=== PATIENT | female | born 1940 | race Caucasian/White ===

== ENCOUNTER 2021-03-28 10:04 | Emergency (ER) | payer BC, SELFPAY ==
[2021-03-28 10:18] VITALS: BP 150/78; PULSE 93; RESP 16; TEMP 36.2; O2SAT 99
--- NOTE | 2021-03-28 10:28 | ED.EXTPRO ---
HPI - Extremity Problem General Chief complaint: Extremity Problem,Nontraumatic Stated complaint: Swolllen toe History of Present Illness HPI Narrative: This is a 80-year-old female comes in complaining of toe sore according to patient she noticed it on Wednesday. Patient denies any injuries states that it is bruised swollen she is a diabetic denies any pain. Related Data Home Medications Medication Instructions Recorded Confirmed amlodipine 5 mg PO DAILY 03/28/21 03/28/21 apixaban [Eliquis] 5 mg PO BID 03/28/21 03/28/21 dapagliflozin [Farxiga] 10 mg PO DAILY 03/28/21 03/28/21 dulaglutide [Trulicity] 1.5 mg SUBCUT WEEKLY 03/28/21 03/28/21 insulin glargine [Basaglar KwikPen 66 unit SUBCUT DAILY 03/28/21 03/28/21 U-100 Insulin] insulin lispro [Humalog KwikPen 30 unit SUBCUT TIDWMEAL 03/28/21 03/28/21 Insulin] metoprolol succinate 25 mg PO DAILY 03/28/21 03/28/21 ramipril 1.25 mg PO DAILY 03/28/21 03/28/21 rosuvastatin 40 mg PO DAILY 03/28/21 03/28/21 Allergies Allergy/AdvReac Type Severity Reaction Status Date / Time levofloxacin Allergy Unknown ELAVATED Verified 03/28/21 10:07 BLOOD SUGAR NAUSEA Sulfa (Sulfonamide Allergy Unknown Chills Verified 03/28/21 10:07 Antibiotics) Contrast Media Allergy Mild Hives / Uncoded 03/28/21 10:07 Red Face Review of Systems Review of Systems: Left second toe All systems reviewed & are unremarkable except as noted in HPI and below PMFSH Comments At time as signature, I have reviewed and agree with nursing past medical, social, surgical and family history. Please see nursing chart for further information. There is no relevant family history pertinent to the presenting complaint. Exam Narrative: GENERAL:Well-appearing, well-nourished, and in no acute distress. HEAD:Normocephalic, atraumatic. EYES: PERRLA and EOMI. ENT: Nares clear, no rhinorrhea or epistaxis. Mucous membranes moist. NECK: Supple. CHEST: Clear to auscultation. No respiratory distress. HEART: Regular rate and rhythm. Normal peripheral pulses. ABDOMEN: Soft, nontender, nondistended, normal active bowel sounds. EXTREMITIES: Normal range of motion. Left second toe bruise and swollen looks as if a blister is forming. SKIN: Warm, dry, no rash. NEURO: No focal deficits. Alert and oriented x3. Course Vital Signs Vital signs: Vital Signs Temperature 97.2 F L 03/28/21 10:18 Pulse Rate 93 03/28/21 10:18 Respiratory Rate 16 03/28/21 10:18 Blood Pressure 150/78 H 03/28/21 10:18 Pulse Oximetry 99 03/28/21 10:18 Temperature 97.2 F L 03/28/21 10:18 Pulse Rate 93 03/28/21 10:18 Respiratory Rate 16 03/28/21 10:18 Blood Pressure 150/78 H 03/28/21 10:18 Pulse Oximetry 99 03/28/21 10:18 Discharge Plan Discharge Clinical Impression: Cellulitis of toe, left Hypertension Qualifiers: Hypertension type: unspecified Qualified Code(s): I10 - Essential (primary) hypertension Patient Disposition: Home, Self-Care Condition: Stable Instructions: Antibiotic Form, Cellulitis (ED), Chronic Hypertension (ED) Additional Instructions: Take the prescribed antibiotic medicine you are given as directed until it is gone. ... Keep the infected area clean. When possible, raise the infected area above the level of your heart. ... Talk with your healthcare provider if you are in pain. ... Apply clean bandages as advised. Please STONE schedule a followup visit with your personal physician with in the next 1-4 weeks for further evaluation and treatment. Also, ask your personal physician to assist you regarding blood pressure. Even blood pressure exceeding 120/80 may indicate pre-hypertension. If your symptoms persist, change or worsen significantly before you can contact your personal physician then please, without delay, go to the emergency department for further evaluation. Prescriptions: New cephalexin 500 mg capsule 500 mg PO Q12H Qty: 20 RF: 0 No A
== END 2021-03-28 10:40 | disposition home or self-care (01) ==
PROVIDERS: Emergency Provider Nurse Practitioner Family
DX: L03.032 Cellulitis of left toe (principal); I10 Essential (primary) hypertension; E11.9 Type 2 diabetes mellitus without complications; Z79.01 Long term (current) use of anticoagulants; Z79.4 Long term (current) use of insulin
CPT/HCPCS: 99213; G0463

== ENCOUNTER 2023-11-12 17:45 | Observation (INO) | payer BC, MEDICARE, SELFPAY ==
[2023-11-12] VITALS (9 sets, daily range): BP systolic 112–145; BP diastolic 48–96; PULSE 54–63; RESP 14–18; TEMP 36.2–36.4; O2SAT 93–99; BMI 42.9
--- NOTE | ~2023-11-12 | XR_ITS ---
EXAMINATION: XR chest 1V portable DATE: 11/12/2023 19:51 INDICATION: Weakness. TECHNIQUE: A single frontal view of the chest was obtained. COMPARISON: Chest 2 views 10/19/2016 FINDINGS: There is mild atelectasis in the lower lung zones. No pleural effusion or pneumothorax. The heart size is normal. There is a chronic sclerotic lesion in proximal left humerus, likely an enchon droma or osteonecrosis. IMPRESSION: 1. Mild atelectasis in the lower lung zones. Reviewed, dictated and finalized at location E.
[2023-11-12 18:00] LABS: Glucose Point of Care 127 mg/dl (65-105)
--- NOTE | 2023-11-12 19:19 | ECG_ITS ---
SEE SCANNED COPY FOR CONFIRMED REPORT MTDD
--- NOTE | 2023-11-12 19:26 | PC.NURSE ---
this rn assumed care of patient. this rn took patient report from ASHTYN [place].
--- NOTE | 2023-11-12 19:28 | ED.GENADULT ---
HPI - General Adult General Chief complaint: Recheck/Abnormal Lab/Rx Stated complaint: LOW bg Time Seen by Provider: 11/12/23 19:10 History of Present Illness HPI narrative: patient 83-year-old female who presents emergency department with chief complaint of hypoglycemia. Patient was recently admitted to [facility] and was discharged a day and a half ago to a assisted living facility apparently they have not restarted the patient's Dexcom and the family reports that her insulin dose had been reduced to 15 units as the patient has not really been eating and drinking much since she was hospitalized the family reports that they believe that the facility may have given her old dose of 20 units the patient was found have a blood sugar in the 30s and was treated with glucagon and dextrose Related Data Home Medications Medication Instructions Recorded Confirmed amlodipine 5 mg tablet 5 mg PO DAILY 03/28/21 11/11/23 apixaban 5 mg tablet (Eliquis) 5 mg PO BID 03/28/21 11/11/23 ramipril 1.25 mg capsule 1.25 mg PO DAILY 03/28/21 11/11/23 rosuvastatin 40 mg tablet 40 mg PO DAILY 03/28/21 11/11/23 ergocalciferol (vitamin D2) 1,250 1,250 mcg PO WEEKLY 06/03/22 11/11/23 mcg (50,000 unit) capsule icosapent ethyl 1 gram capsule 1 g PO BID 06/03/22 11/11/23 (Vascepa) multivitamin with minerals-folic 1 tablet PO DAILY 06/03/22 11/11/23 acid 120 mcg chewable tablet (Centrum Adult 50 Plus Fresh-Fruity) carvedilol 25 mg tablet 25 mg PO Q12H 12/08/22 11/11/23 ferrous sulfate 325 mg (65 mg 325 mg PO DAILY 12/08/22 11/11/23 iron) tablet finerenone 10 mg tablet (Kerendia) 10 mg PO DAILY 06/02/23 11/11/23 Allergies Allergy/AdvReac Type Severity Reaction Status Date / Time levofloxacin Allergy Unknown ELAVATED Verified 09/30/23 10:12 BLOOD SUGAR NAUSEA Sulfa (Sulfonamide Allergy Unknown Chills Verified 09/30/23 10:12 Antibiotics) Contrast Media Allergy Mild Hives / Uncoded 09/30/23 10:12 Red Face Review of Systems Review of Systems: A 10 system review of systems was completed on the patient and is negative except for what is stated in the HPI. Nursing and ancillary documentation was reviewed. [facility] Past Medical History Medical History Basal cell carcinoma (BCC) of face Hypoxia Pulmonary embolism Type 2 diabetes mellitus Social History Social History Smoking status: Never smoker Second hand tobacco smoke exposure: No Alcohol intake: never Alcohol use details: ONCE A YEAR Substance use: never Do You Feel Safe in your Home?: Yes Lack of Transportation: No Lack of Food: Never True Current Housing: I Have Housing Concerned About Future Housing: No Difficulty Paying Gas/Electric Bills: No Difficulty Paying for Meds: No Currently Unemployed: No Education: High School Diploma/GED Difficulty w/ Childcare or Family Care: No Living arrangements: with friend(s) Occupation/Education: retired Gender identity (if verbalized by the patient): Female Spiritual care concerns: No Exam Narrative: GENERAL: Well-appearing, well-nourished, and in no acute distress. HEAD: Normocephalic, atraumatic. EYES: PERRLA and EOMI. ENT: Nares clear, no rhinorrhea or epistaxis. Mucous membranes moist. NECK: Supple. CHEST: Clear to auscultation. No respiratory distress. HEART: Regular rate and rhythm. No murmur heard. Normal peripheral pulses. ABDOMEN: Soft, nontender, nondistended, normal active bowel sounds. EXTREMITIES: Normal range of motion. No edema. SKIN: Warm, dry, no rash. NEURO: No focal deficits. Alert and oriented x3. PSYCH: Normal mood and affect. Course Vital Signs Vital signs: Vital Signs Temperature 36.2 C L 11/12/23 17:56 Pulse Rate 58 L 11/12/23 17:56 Respiratory Rate 14 11/12/23 17:56 Blood Pressure 112/59 L 11/12/23 17:
[2023-11-12 19:38] LABS: Glucose Point of Care 150 mg/dl (65-105)
[2023-11-12 19:52] LABS: Basophils Absolute Auto 0.1 K/mm3 (0.0-0.1); Basophils Percent Auto 0.5 % (0.2-1.2); Eosinophils Absolute Auto 0.2 K/mm3 (0-0.3); Eosinophils Percent Auto 1.7 % (0-4.4); Hematocrit 33.4 % (37.0-47.0); Hemoglobin 10.6 g/dL (12.0-15.0); Immature Granulocyte Absolute 0.04 K/mm3 (0.00-0.031); Immature Granulocyte Percent A 0.3 % (0-0.5); Lymphocytes Absolute Auto 1.56 K/mm3 (0.9-3.2); Lymphocytes Percent Auto 12.2 % (18.3-44.2); Mean Corpuscular HGB Conc 31.7 g/dl (32-36); Mean Corpuscular Hemoglobin 30.8 pg (26-34); Mean Corpuscular Volume 97.1 fl (80-100); Mean Platelet Volume 9.7 fl (7.4-10.4); Monocytes Absolute Auto 0.9 K/mm3 (0.1-0.6); Monocytes Percent Auto 7.3 % (2.6-8.5); Platelet Count Result 235 k/mm3 (150-375); Red Blood Count 3.44 M/mm3 (4.2-5.4); Red Cell Distribution Width 13.3 % (11.5-14.5); White Blood Count 12.8 K/mm3 (4.5-10.0)
[2023-11-12 20:07] LABS: Alanine Aminotransferase 25 U/L (6-35); Albumin Level 3.8 g/dL (3.5-5.1); Alkaline Phosphatase 70 U/L (38-126); Anion Gap 6 mmol/L (4-12); Aspartate Amino Transferase 38 U/L (14-36); Bilirubin,Total 0.7 mg/dL (0.2-1.3); Blood Urea Nitrogen 49 mg/dL (7-17); Calcium 9.4 mg/dL (8.4-10.2); Carbon Dioxide 33 mmol/L (22-30); Chloride 99 mmol/L (98-107); Estimated CRCL calculation 26 ml/min; Estimated Glomerular Filt Rate 24; Glucose 141 mg/dL (65-110); Potassium 3.7 mmol/L (3.4-5.0); Sodium 138 mmol/L (137-145)
[2023-11-12 20:08] LABS: Lactic Acid Reflex 0.8 mmol/L (0.7-2.0)
[2023-11-12 20:17] LABS: Troponin I 0.022 ng/mL (0.000-0.034)
[2023-11-12 20:32] LABS: Procalcitonin 0.2 ng/mL
[2023-11-12] MEDS: SODIUM CHLORIDE 0.9% IV 1,000 ML 75 ML IV CONT (21:42)
[2023-11-12 21:44] LABS: Add Urine Microscopic? NO; Appearance Urine Clear (Clear); Bilirubin Urine Negative (Negative); Blood Urine Negative (Negative); Color Urine Yellow (Yellow); Glucose Urine UA 2+ mg/dL (Negative); Ketones Urine Negative (Negative); Leukocyte Esterase Ur Negative LEU/UL (Negative); Nitrate Urine Negative (Negative); Protein Urine Negative (Negative); Specific Grav Ur 1.013 (1.001-1.035); pH Urine 7.5 (5.0-9.0)
--- NOTE | 2023-11-12 22:13 | ADMGEN ---
This patient, María Paul, was admitted to IMU Room 214-01. Patient/family oriented to hospital policies and general routines including ID bracelet, bed and alarms, visiting hours, pain management, procedures, bathroom and other care routines, personal items, smoking policy, room service/diet, and visiting hours. Information on how to activate the Rapid Response Team has been discussed. Patient/Family are encouraged to report perceived risks to care and to ask questions if they do not understand what they are told or what they should do.
--- NOTE | 2023-11-12 22:14 | PM.IMHP ---
H&P: HPI History of Present Illness Date/Time: 11/12/23 22:14 Chief Complaint: altered mental status Narrative: This is an 83-year-old female who resides at a a [facility] a facility, past medical history significant for insulin-dependent diabetes mellitus, hypertension, dyslipidemia,she was brought to the emergency room for evaluation due to altered mental status patient was found to have a blood sugar of 36. When visiting with the patient she stated that deliberately has been eating less than 50% of her meals to avoid uncontrolled sugars. Patient had a recent admission for uncontrolled sugars at outside facility. Patient denies any nausea, vomiting, diarrhea, fevers, night sweats, cough, sputum production. Preliminary workup has been essentially nonrevealing. EXAMINATION: XR chest 1V portable DATE: 11/12/2023 19:51 INDICATION: Weakness. TECHNIQUE: A single frontal view of the chest was obtained. COMPARISON: Chest 2 views 10/19/2016 FINDINGS: There is mild atelectasis in the lower lung zones. No pleural effusion or pneumothorax. The heart size is normal. 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 IMPRESSION: 1. Mild atelectasis in the lower lung zones. Review of Systems Review of Systems: Low blood sugar Constitutional: Constitutional: Denies chills, Denies fever(s), Denies malaise and Denies weakness Eyes: Eyes: Denies change in vision ENT: Denies dysphagia and Denies odynophagia Cardiovascular: Cardiovascular: Denies chest pain, Denies radiating jaw, neck or arm pain and Denies palpitations Respiratory: Respiratory: Denies chest congestion and Denies cough Gastrointestinal: Gastrointestinal: Denies abdominal pain, Denies dyspepsia, Denies diarrhea, Denies nausea and Denies vomiting Genitourinary: Genitourinary: Denies dysuria Musculoskeletal: Musculoskeletal: Denies arthralgias Integumentary/Breasts: Skin/Breast: Denies rash Neurologic: Denies focal weakness and Denies Sensory deficit (Neuro) Psychiatric: Psychiatric: Reports no additional psychiatric complaints and Reports as per HPI Endocrine: Endocrine: Denies polyphagia, Denies polydipsia, Denies polyuria and Reports other ( hypoglycemia) Hematologic/Lymphatic: Hematologic/Lymphatic: Reports no additional hematologic/lymphatic complaints and Reports as per HPI Allergic/Immunologic: Allergic/Immunologic: Reports no additional allergic/immunologic complaints and Reports as per HPI [facility] Past Medical History Medical History (Updated 11/13/23 @ 02:16 by Rafi Kendall MD) Basal cell carcinoma (BCC) of face Hypoxia Pulmonary embolism Type 2 diabetes mellitus Family History Family History (Updated 11/12/23 @ 23:04 by Dominique Yuen RN) Mother Hypertension Diabetes mellitus Cancer Sibling Hypertension Diabetes mellitus Social History Social History Smoking status: Never smoker Second hand tobacco smoke exposure: No Alcohol intake: never Alcohol use details: ONCE A YEAR Substance use: never Do You Feel Safe in your Home?: Yes Lack of Transportation: No Lack of Food: Never True Current Housing: I Have Housing Concerned About Future Housing: No Difficulty Paying Gas/Electric Bills: No Difficulty Paying for Meds: No Currently Unemployed: No Education: High School Diploma/GED Difficulty w/ Childcare or Family Care: No Living arrangements: with friend(s) Occupation/Education: retired Gender identity (if verbalized by the patient): Female Spiritual care concerns: No Meds Home Medications and Allergies Home Medications Medication Instructions Recorded Confirmed Type amlodipine 5 mg tablet 5 mg PO DAILY 03/28/21 11/11/23 History apixaban 5 mg tablet (Eliquis) 5 mg PO BID 03/28/21 11/11/23 History ramipril 1.25 mg capsule 1.25 mg PO DAILY 03/28/21 11/11/23 Hi
[2023-11-12 22:18] LABS: Glucose Point of Care 141 mg/dl (65-105)
[2023-11-13] VITALS (10 sets, daily range): BP systolic 125–145; BP diastolic 35–60; PULSE 62–77; RESP 16–17; TEMP 36.3–37.1; O2SAT 91–99
[2023-11-13 00:15] LABS: Glucose Point of Care 98 mg/dl (65-105)
[2023-11-13 03:24] LABS: Glucose Point of Care 135 mg/dl (65-105)
[2023-11-13 04:29] LABS: Glucose Point of Care 144 mg/dl (65-105)
[2023-11-13 04:40] LABS: Basophils Absolute Auto 0.1 K/mm3 (0.0-0.1); Basophils Percent Auto 0.7 % (0.2-1.2); Eosinophils Absolute Auto 0.3 K/mm3 (0-0.3); Eosinophils Percent Auto 3.5 % (0-4.4); Hematocrit 30.2 % (37.0-47.0); Hemoglobin 9.6 g/dL (12.0-15.0); Immature Granulocyte Absolute 0.02 K/mm3 (0.00-0.031); Immature Granulocyte Percent A 0.3 % (0-0.5); Lymphocytes Absolute Auto 1.67 K/mm3 (0.9-3.2); Lymphocytes Percent Auto 22.4 % (18.3-44.2); Mean Corpuscular HGB Conc 31.8 g/dl (32-36); Mean Corpuscular Hemoglobin 30.8 pg (26-34); Mean Corpuscular Volume 96.8 fl (80-100); Mean Platelet Volume 9.9 fl (7.4-10.4); Monocytes Absolute Auto 0.8 K/mm3 (0.1-0.6); Monocytes Percent Auto 10.3 % (2.6-8.5); Neutrophils Absolute Auto 4.7 K/mm3 (1.3-6.7); Neutrophils Percent Auto 62.8 % (45.5-73.1); Platelet Count Result 214 k/mm3 (150-375); Red Blood Count 3.12 M/mm3 (4.2-5.4); Red Cell Distribution Width 13.2 % (11.5-14.5); White Blood Count 7.5 K/mm3 (4.5-10.0)
[2023-11-13 04:52] LABS: Anion Gap 9 mmol/L (4-12); Blood Urea Nitrogen 47 mg/dL (7-17); Carbon Dioxide 31 mmol/L (22-30); Chloride 100 mmol/L (98-107); Estimated CRCL calculation 25 ml/min; Estimated Glomerular Filt Rate 24; Glucose 139 mg/dL (65-110); Potassium 3.6 mmol/L (3.4-5.0); Sodium 140 mmol/L (137-145)
[2023-11-13 06:21] LABS: Glucose Point of Care 133 mg/dl (65-105)
[2023-11-13 07:43] LABS: Glucose Point of Care 107 mg/dl (65-105)
--- NOTE | 2023-11-13 08:28 | PM.IMPN ---
Progress Note: A&P Assessment and Plan (1) Hypoglycemia: Code(s): E16.2 - Hypoglycemia, unspecified Status: Acute (2) Type 2 diabetes mellitus with hyperglycemia, with long-term current use of insulin: Code(s): E11.65 - Type 2 diabetes mellitus with hyperglycemia; Z79.4 - petroleum terminal plant operator (current) use of insulin Status: Acute (3) Generalized weakness: Code(s): R53.1 - Weakness Status: Acute (4) Pulmonary embolism: Code(s): I26.99 - Other pulmonary embolism without acute cor pulmonale Status: Acute Plan This is an 83-year-old female who presents to the ED with complaint of hypoglycemia. Patient was recently admitted to [place] and was discharged the day and half ago to assisted living facility. Patient had been on insulin at home. Patient poor historian. Blood sugar was as low as 30s at home and was treated with glucagon and dextrose in the facility. She was sent to the ER for further treatment. Laboratory evaluation showed WBC of 12.8 hemoglobin of 10.6 creatinine of 2. Procalcitonin was 0.2 troponin 0.022 chest x-ray with no acute findings. Admitted for overnight observation for hypoglycemia. According to the medical records patient has been eating poorly she was recently admitted for uncontrolled sugars at the outside facility. X-rays monitoring with acceptable blood sugar currently. Insulin on hold. Will check A1c. On dapagliflozin 10 mg daily Lantus 30 units Humalog 20 units 3 times a day with meals and mounjaro 5 mg weekly listed in her home medlist follows with Endocrinology at [facility]. A1c 8.7 10/02. Urinary retention needing straight catheterization History of PE on apixaban Hypertension Hyperlipidemia Coronary artery disease status post stents in the past Mild anemia with no signs of bleeding Renal insufficiency creatinine of 2 GFR 25. No prior levels available. But noted GFR of 31 in endocrine visit note. Likely has chronic kidney disease DVT prophylaxis with apixaban Subjective Date/time seen: 11/13/23 08:28 Interval history: Feels well. No new complaints. Blood sugar trend reviewed. States blood sugar has been up and down Review of Systems Review of Systems: All systems reviewed & are unremarkable except as noted in HPI and below Exam Narrative: GENERAL: Well-appearing, well-nourished, and in no acute distress. HEAD: Normocephalic, atraumatic. EYES: PERRLA and EOMI. ENT: Nares clear, no rhinorrhea or epistaxis.? Mucous membranes moist. NECK: Supple. CHEST: Clear to auscultation.? No respiratory distress. HEART: Regular rate and rhythm.? No murmur heard.? Normal peripheral pulses. ABDOMEN: Soft, nontender, nondistended, normal active bowel sounds. EXTREMITIES: Normal range of motion.? No edema. SKIN: Warm, dry, no rash. NEURO: No focal deficits.? Alert and oriented x3. PSYCH: Normal mood and affect. Objective Data Vital Signs Vital Signs: Vital Signs - 24 hr 11/12/23 17:56 11/12/23 19:31 11/12/23 19:31 Temperature 97.2 F L Pulse Rate 58 L 54 L Respiratory Rate 14 15 14 Blood Pressure 112/59 L 117/49 L Pulse Oximetry 95 95 95 Oxygen Delivery 11/12/23 19:47 11/12/23 20:02 11/12/23 20:32 Temperature Pulse Rate 59 L 56 L 58 L Respiratory Rate 14 15 14 Blood Pressure 142/57 H 139/48 L 145/62 H Pulse Oximetry 95 97 97 Oxygen Delivery 11/12/23 20:46 11/12/23 21:16 11/12/23 21:31 Temperature Pulse Rate 59 L 61 63 Respiratory Rate 14 14 18 Blood Pressure 141/58 H 134/51 L 139/96 H Pulse Oximetry 96 93 96 Oxygen Delivery 11/12/23 22:00 11/13/23 00:00 11/12/23 22:00 Temperature 97.5 F L 97.4 F L 97.5 F L Pulse Rate 62 77 62 Respiratory Rate 18 16 16 Blood Pressure 139/48 L 130/35 L 139/48 L Pulse Oximetry 99 99 99 Oxygen Delivery 11/13/23 00:00 11/13/23 04:00 11/13/23 04:00 Temperature 97.9 F Pulse Rate 68 Respiratory Rate 16 Blood Pressure 126/37 L Pulse Oximetry 91
[2023-11-13] MEDS: APIXABAN 5 MG TABLET PO ×2 (08:40→21:49)
[2023-11-13] MEDS: OMEGA 3 POLYUNSAT FATTY ACIDS 1 GM CAP PO ×2 (08:40→17:18)
[2023-11-13] MEDS: ROSUVASTATIN 10 MG TABLET 40 MG PO (08:40)
[2023-11-13] MEDS: amLODIPine BESYLATE 5 MG TABLET PO (08:40)
[2023-11-13] MEDS: FERROUS SULFATE 325 MG TABLET DR BY MOUTH (08:40)
[2023-11-13] MEDS: carvediloL 25 MG TABLET PO ×2 (08:40→21:49)
[2023-11-13 10:14] LABS: Glucose Point of Care 167 mg/dl (65-105)
--- NOTE | 2023-11-13 11:38 | PC.NURSE ---
This patient, María Paul, was transferred to [facility] on 11/13/23 at 1138. Personal belongings sent with patient. Report given to Cat CHAMORRO. Appropriate documentation sent with patient. Left Message with Michela (Sister) of new room number.
--- NOTE | 2023-11-13 11:40 | PC.NURSE ---
This patient, María Paul, was received from [facility] on 11/13/23 at 1140. Patient/family oriented to unit policies and routines. Report received from ASHTYN [place].
[2023-11-13 13:53] LABS: Hemoglobin A1C 6.8 % (<5.7)
[2023-11-13] MEDS: SODIUM CHLORIDE 0.9% IV 1,000 ML 75 ML IV CONT (17:19)
[2023-11-13 17:28] LABS: Glucose Point of Care 167 mg/dl (65-105)
--- NOTE | 2023-11-13 19:13 | PC.NURSE ---
On 11/13/23, the PIPE STEM REPAIRER, Cat, provided care and completed [facility] documentation on this patient. I have reviewed the PIPE STEM REPAIRER's documentation and agree with the findings.
[2023-11-13 21:18] LABS: Glucose Point of Care 220 mg/dl (65-105)
[2023-11-14] MEDS: SODIUM CHLORIDE 0.9% IV 1,000 ML 75 ML IV CONT (02:00)
[2023-11-14 04:42] LABS: Basophils Absolute Auto 0.1 K/mm3 (0.0-0.1); Eosinophils Absolute Auto 0.3 K/mm3 (0-0.3); Eosinophils Percent Auto 5.7 % (0-4.4); Hematocrit 30.2 % (37.0-47.0); Hemoglobin 9.4 g/dL (12.0-15.0); Immature Granulocyte Absolute 0.01 K/mm3 (0.00-0.031); Immature Granulocyte Percent A 0.2 % (0-0.5); Lymphocytes Absolute Auto 1.86 K/mm3 (0.9-3.2); Lymphocytes Percent Auto 31.2 % (18.3-44.2); Mean Corpuscular HGB Conc 31.1 g/dl (32-36); Mean Corpuscular Hemoglobin 30.5 pg (26-34); Mean Corpuscular Volume 98.1 fl (80-100); Mean Platelet Volume 9.9 fl (7.4-10.4); Monocytes Absolute Auto 0.8 K/mm3 (0.1-0.6); Monocytes Percent Auto 12.9 % (2.6-8.5); Neutrophils Absolute Auto 2.9 K/mm3 (1.3-6.7); Platelet Count Result 216 k/mm3 (150-375); Red Blood Count 3.08 M/mm3 (4.2-5.4); Red Cell Distribution Width 13.2 % (11.5-14.5)
[2023-11-14 04:56] LABS: Alanine Aminotransferase 22 U/L (6-35); Albumin Level 3.4 g/dL (3.5-5.1); Alkaline Phosphatase 65 U/L (38-126); Anion Gap 3 mmol/L (4-12); Aspartate Amino Transferase 31 U/L (14-36); Bilirubin,Total 0.6 mg/dL (0.2-1.3); Blood Urea Nitrogen 44 mg/dL (7-17); Calcium 8.5 mg/dL (8.4-10.2); Carbon Dioxide 32 mmol/L (22-30); Chloride 102 mmol/L (98-107); Estimated CRCL calculation 27 ml/min; Estimated Glomerular Filt Rate 27; Glucose 133 mg/dL (65-110); Potassium 3.7 mmol/L (3.4-5.0); Sodium 137 mmol/L (137-145)
[2023-11-14 06:00] VITALS: BP 109/56; PULSE 61; RESP 16; TEMP 36.3; O2SAT 97
[2023-11-14 07:23] LABS: Glucose Point of Care 150 mg/dl (65-105)
[2023-11-14 09:19] VITALS: PULSE 72
[2023-11-14] MEDS: OMEGA 3 POLYUNSAT FATTY ACIDS 1 GM CAP PO ×2 (09:19→17:03)
[2023-11-14] MEDS: ROSUVASTATIN 10 MG TABLET 40 MG PO (09:19)
[2023-11-14] MEDS: carvediloL 25 MG TABLET PO ×2 (09:19→21:48)
[2023-11-14] MEDS: APIXABAN 5 MG TABLET PO ×2 (09:20→21:47)
[2023-11-14] MEDS: FERROUS SULFATE 325 MG TABLET DR BY MOUTH (09:21)
[2023-11-14 09:38] VITALS: BP 136/43
[2023-11-14] MEDS: amLODIPine BESYLATE 5 MG TABLET PO (09:39)
[2023-11-14 11:14] LABS: Glucose Point of Care 220 mg/dl (65-105)
[2023-11-14] MEDS: INSULIN ASPART (*BKC) 100 UNITS/ML SUB-Q (11:58)
--- NOTE | 2023-11-14 13:52 | PM.IMPN ---
Progress Note: A&P Assessment and Plan (1) Hypoglycemia: Code(s): E16.2 - Hypoglycemia, unspecified Status: Acute (2) Type 2 diabetes mellitus with hyperglycemia, with long-term current use of insulin: Code(s): E11.65 - Type 2 diabetes mellitus with hyperglycemia; Z79.4 - terminal operator (current) use of insulin Status: Acute (3) Generalized weakness: Code(s): R53.1 - Weakness Status: Acute (4) Pulmonary embolism: Code(s): I26.99 - Other pulmonary embolism without acute cor pulmonale Status: Acute Plan This is an 83-year-old female who presents to the ED with complaint of hypoglycemia. Patient was recently admitted to [place] and was discharged the day and half ago to assisted living facility. Patient had been on insulin at home. Patient poor historian. Blood sugar was as low as 30s at home and was treated with glucagon and dextrose in the facility. She was sent to the ER for further treatment. Laboratory evaluation showed WBC of 12.8 hemoglobin of 10.6 creatinine of 2. Procalcitonin was 0.2 troponin 0.022 chest x-ray with no acute findings. Admitted for overnight observation for hypoglycemia. According to the medical records patient has been eating poorly she was recently admitted for uncontrolled sugars at the outside facility. X-rays monitoring with acceptable blood sugar currently. Insulin on hold. Will check A1c. On dapagliflozin 10 mg daily Lantus 30 units Humalog 20 units 3 times a day with meals and mounjaro 5 mg weekly listed in her home medlist follows with Endocrinology at [facility]. A1c 8.7 10/02. Repeat A1c here at 6.8. With recurrent hypoglycemia and her confusion about insulin dosing will try to avoid insulin at least prandial this point. Blood sugars are running bit would like to get her back got at least the basal insulin at this point. Urinary retention needing straight catheterization History of PE on apixaban Hypertension Hyperlipidemia Coronary artery disease status post stents in the past Mild anemia with no signs of bleeding Renal insufficiency creatinine of 2 GFR 25. No prior levels available. But noted GFR of 31 in endocrine visit note. Likely has chronic kidney disease DVT prophylaxis with apixaban Subjective Date/time seen: 11/14/23 13:52 Interval history: No overnight events. Getting corrective insulin. She reports she gets confused with insulin dosing. Review of Systems Review of Systems: All systems reviewed & are unremarkable except as noted in HPI and below Exam Narrative: GENERAL: Well-appearing, well-nourished, and in no acute distress. HEAD: Normocephalic, atraumatic. EYES: PERRLA and EOMI. ENT: Nares clear, no rhinorrhea or epistaxis.? Mucous membranes moist. NECK: Supple. CHEST: Clear to auscultation.? No respiratory distress. HEART: Regular rate and rhythm.? No murmur heard.? Normal peripheral pulses. ABDOMEN: Soft, nontender, nondistended, normal active bowel sounds. EXTREMITIES: Normal range of motion.? No edema. SKIN: Warm, dry, no rash. NEURO: No focal deficits.? Alert and oriented x3. PSYCH: Normal mood and affect. Objective Data Vital Signs Vital Signs: Vital Signs - 24 hr 11/13/23 21:38 11/13/23 21:49 11/14/23 06:00 Temperature 98.8 F 97.4 F L Pulse Rate 62 74 61 Respiratory Rate 16 16 Blood Pressure 125/60 109/56 L Pulse Oximetry 96 97 Oxygen Delivery 11/14/23 09:19 11/14/23 09:38 11/14/23 09:10 Temperature Pulse Rate 72 Respiratory Rate Blood Pressure 136/43 L Pulse Oximetry Oxygen Delivery Room Air Intake/Output Intake/Output: Intake & Output 11/11/23 11/12/23 11/13/23 11/14/23 23:59 23:59 23:59 23:59 Intake Total 2270 1131.2 Output Total 1125 Balance 1145 1131.2 Meds/Results Medications: Active Medications Generic Name Dose Route Start Last Admin Trade Name Freq PRN Reason Stop Dose Admin Acetaminophen 650 mg 11/12/23 21:15
[2023-11-14 14:00] VITALS: BP 118/51; PULSE 58; RESP 20; TEMP 36.8; O2SAT 95
[2023-11-14 14:20] LABS: Glucose Point of Care 234 mg/dl (65-105)
--- NOTE | 2023-11-14 15:35 | PC.NURSE ---
On 11/14/23, the DORMITORY SUPERVISOR, Cat, provided care and [facility]. I have reviewed the DORMITORY SUPERVISOR's documentation and agree with the findings.
[2023-11-14 17:05] LABS: Glucose Point of Care 191 mg/dl (65-105)
[2023-11-14 21:10] LABS: Glucose Point of Care 169 mg/dl (65-105)
[2023-11-14 21:37] VITALS: BP 128/54; PULSE 59; RESP 16; TEMP 36.5; O2SAT 95
[2023-11-14] MEDS: INSULIN GLARGINE (*BKC) 100 UNITS/ML 8 UNITS SUB-Q (21:46)
[2023-11-14 21:48] VITALS: PULSE 60
[2023-11-15 05:21] VITALS: BP 143/48; PULSE 62; RESP 16; TEMP 36.4; O2SAT 94
[2023-11-15 06:14] LABS: Basophils Absolute Auto 0.1 K/mm3 (0.0-0.1); Eosinophils Absolute Auto 0.3 K/mm3 (0-0.3); Eosinophils Percent Auto 4.7 % (0-4.4); Hematocrit 30.4 % (37.0-47.0); Hemoglobin 9.5 g/dL (12.0-15.0); Immature Granulocyte Absolute 0.02 K/mm3 (0.00-0.031); Immature Granulocyte Percent A 0.3 % (0-0.5); Lymphocytes Absolute Auto 1.88 K/mm3 (0.9-3.2); Lymphocytes Percent Auto 31.2 % (18.3-44.2); Mean Corpuscular HGB Conc 31.3 g/dl (32-36); Mean Corpuscular Hemoglobin 30.7 pg (26-34); Mean Corpuscular Volume 98.4 fl (80-100); Mean Platelet Volume 10.4 fl (7.4-10.4); Monocytes Absolute Auto 0.7 K/mm3 (0.1-0.6); Monocytes Percent Auto 12.3 % (2.6-8.5); Neutrophils Percent Auto 50.5 % (45.5-73.1); Platelet Count Result 224 k/mm3 (150-375); Red Blood Count 3.09 M/mm3 (4.2-5.4); Red Cell Distribution Width 13.3 % (11.5-14.5)
[2023-11-15 06:21] LABS: Alanine Aminotransferase 20 U/L (6-35); Albumin Level 3.7 g/dL (3.5-5.1); Alkaline Phosphatase 69 U/L (38-126); Anion Gap 6 mmol/L (4-12); Aspartate Amino Transferase 31 U/L (14-36); Bilirubin,Total 0.6 mg/dL (0.2-1.3); Blood Urea Nitrogen 40 mg/dL (7-17); Calcium 8.9 mg/dL (8.4-10.2); Carbon Dioxide 29 mmol/L (22-30); Chloride 104 mmol/L (98-107); Estimated CRCL calculation 29 ml/min; Estimated Glomerular Filt Rate 29; Glucose 132 mg/dL (65-110); Potassium 3.7 mmol/L (3.4-5.0); Sodium 139 mmol/L (137-145)
[2023-11-15 07:07] LABS: Glucose Point of Care 140 mg/dl (65-105)
[2023-11-15] MEDS: OMEGA 3 POLYUNSAT FATTY ACIDS 1 GM CAP PO (08:32)
[2023-11-15 08:33] VITALS: PULSE 60
[2023-11-15] MEDS: carvediloL 25 MG TABLET PO (08:33)
[2023-11-15] MEDS: amLODIPine BESYLATE 5 MG TABLET PO (08:35)
[2023-11-15] MEDS: APIXABAN 5 MG TABLET PO (08:35)
[2023-11-15] MEDS: FERROUS SULFATE 325 MG TABLET DR BY MOUTH (08:37)
[2023-11-15] MEDS: ROSUVASTATIN 10 MG TABLET 40 MG PO (08:37)
[2023-11-15 11:35] LABS: Glucose Point of Care 224 mg/dl (65-105)
[2023-11-15] MEDS: INSULIN ASPART (*BKC) 100 UNITS/ML SUB-Q (11:57)
[2023-11-15 12:35] VITALS: BMI 42.5
[2023-11-15 14:00] VITALS: BP 107/61; PULSE 68; RESP 16; TEMP 36.6; O2SAT 100
--- NOTE | 2023-11-15 16:19 | PM.DS ---
DS: Admitting Diagnosis Discharge Date 11/15/2023 Admitting Diagnosis hypoglycemia DS: Discharge Diagnosis Discharge Diagnosis (1) Hypoglycemia: Code(s): E16.2 - Hypoglycemia, unspecified Status: Acute (2) Type 2 diabetes mellitus with hyperglycemia, with long-term current use of insulin: Code(s): E11.65 - Type 2 diabetes mellitus with hyperglycemia; Z79.4 - long-term (current) use of insulin Status: Acute (3) Generalized weakness: Code(s): R53.1 - Weakness Status: Acute (4) Pulmonary embolism: Code(s): I26.99 - Other pulmonary embolism without acute cor pulmonale Status: Acute DS: Summary Hospital Course Hospital Course: This is an 83-year-old female who presents to the ED with complaint of hypoglycemia.? Patient was recently admitted to [facility] and was discharged the day and half ago to assisted living facility.? Patient had been on insulin at home.? Patient poor historian.? Blood sugar was as low as 30s at home and was treated with glucagon and dextrose in the facility.? She was sent to the ER for further treatment.? Laboratory evaluation showed WBC of 12.8 hemoglobin of 10.6 creatinine of 2.? Procalcitonin was 0.2 troponin 0.022 chest x-ray with no acute findings.? Admitted for overnight observation for hypoglycemia.? According to the medical records patient has been eating poorly she was recently admitted for uncontrolled sugars at the outside facility.? X-rays monitoring with acceptable blood sugar currently.? Insulin on hold.? Will check A1c.? On dapagliflozin 10 mg daily Lantus 30 units Humalog 20 units 3 times a day with meals and mounjaro 5 mg weekly listed in her home medlist follows with Endocrinology at [facility].? A1c 8.7 10/02.? Repeat A1c here at 6.8.? With recurrent hypoglycemia and her confusion current episode of hypoglycemia noted in her Dexcom report slowly started back water much lower dose. She will continue to follow-up with her ticketer for further titration. 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 No prior levels available.? But noted GFR of 31 in endocrine visit note.? Likely has chronic kidney disease Recent admission for hyperkalemia NEL and fall. Was bradycardic with heart rate of 32 improved with atropine hyperkalemic at 7.4 creatinine of 2.5 on admission was treated with dopamine for bradycardia given insulin calcium gluconate and Lokelma for hyperkalemia bradycardia improved with hyperkalemia treatment head was negative. Eventually on November 09 was discharged to SNF. Follow-up with cardiology as an outpatient basis for bradycardic does have atrial fibrillation Eliquis. Was treated for UTI with antibiotics DVT prophylaxis with apixaban will lower the dose to 2.5 mg b.i.d. Time Spent with Patient Time attestation: Total time spent providing and/or coordinating discharge services: 35 minutes Exam Narrative: GENERAL: Well-appearing, well-nourished, and in no acute distress. HEAD: Normocephalic, atraumatic. EYES: PERRLA and EOMI. ENT: Nares clear, no rhinorrhea or epistaxis.? Mucous membranes moist. NECK: Supple. CHEST: Clear to auscultation.? No respiratory distress. HEART: Regular rate and rhythm.? No murmur heard.? Normal peripheral pulses. ABDOMEN: Soft, nontender, nondistended, normal active bowel sounds. EXTREMITIES: Normal range of motion.? No edema. SKIN: Warm, dry, no rash. NEURO: No focal deficits.? Alert and oriented x3. PSYCH: Normal mood and affect. DS: Data Data Completed and Pending Labs on day of discharge: Labs from last 24 hours 11/15/23 11/15/23 11/15/23 11:29 07:04 05:32 WBC 6.0 RBC 3.09 L Hgb 9.5 L Hct 30.4 L MCV 98.4 MCH 30.7 MCHC 31.3 L RDW 13.3 Plt
[2023-11-15 16:27] LABS: Glucose Point of Care 169 mg/dl (65-105)
[2023-11-15 18:07] LABS: SARS-CoV-2 RNA PCR Negative (Negative)
--- NOTE | 2023-11-22 12:14 | PCCDE ---
11/22/23 Spoke with POA - Pt discharged to [facility]. They reportedly reached out to Endo due to change in bolus insulin, continuing with adjusted dose at this time. Pt to call re: outpatient DSMT/MNT when home from Rehab. Follow up with [facility] middle December. FJ
== END 2023-11-15 19:45 ==
LOC: ANHED 19:56 → ANHIMU 22:46 → ANH3MEDSUR 11-13 12:37 → ANHIMU 11-16 08:09 → ANH3MEDSUR 11-24 06:40
PROVIDERS: Admitting Provider Internal Medicine; Emergency Provider Emergency Medicine; PCP Family Medicine; Visit Provider Internal Medicine
DX: E11.649 Type 2 diabetes mellitus with hypoglycemia without coma (principal); I26.99 Other pulmonary embolism without acute cor pulmonale; R53.1 Weakness; I25.10 Atherosclerotic heart disease of native coronary artery without angina pectoris; R33.9 Retention of urine, unspecified; D64.9 Anemia, unspecified; N28.9 Disorder of kidney and ureter, unspecified; I10 Essential (primary) hypertension; E78.5 Hyperlipidemia, unspecified; Z79.4 Long term (current) use of insulin; Z79.01 Long term (current) use of anticoagulants; Z79.85 Long-term (current) use of injectable non-insulin antidiabetic drugs; Z79.84 Long term (current) use of oral hypoglycemic drugs; Z11.52 Encounter for screening for COVID-19
CPT/HCPCS: 36415; 71045; 80048; 80053; 81003; 82948; 83036; 83605; 83735; 84145; 84484; 85025; 87635; 93005; 99285; A9270; G0378; J1815; J7030

== ENCOUNTER 2024-03-08 10:45 | Outpatient (RCR) | payer BC, SELFPAY ==
[2023-12-15 11:25] VITALS: BMI 41.1
[2024-01-04 13:30] VITALS: BMI 41.1
[2024-03-08 10:50] VITALS: BMI 41.1
== END 2024-03-08 23:59 | disposition home or self-care (01) ==
LOC: ANHDMC 10:45
PROVIDERS: PCP Family Medicine; Visit Provider Internal Medicine Endocrinology, Diabetes & Metabolism
DX: E11.65 Type 2 diabetes mellitus with hyperglycemia (principal); Z79.4 Long term (current) use of insulin; Z71.89 Other specified counseling; Z71.3 Dietary counseling and surveillance
CPT/HCPCS: 97802; 97803; G0108

== ENCOUNTER 2024-06-14 10:30 | Outpatient (RCR) | payer BC, SELFPAY | END 2024-06-26 09:38 | disposition home or self-care (01) | LOC: ANHDMC 10:30 | PROVIDERS: PCP Family Medicine; Visit Provider Internal Medicine Endocrinology, Diabetes & Metabolism | DX: E11.65 Type 2 diabetes mellitus with hyperglycemia (principal); Z79.4 Long term (current) use of insulin; Z71.89 Other specified counseling | CPT/HCPCS: G0108 ==